=== PATIENT | female | born 1995 | race Caucasian/White ===

== ENCOUNTER 2016-08-02 15:21 | Emergency (ER) | payer MEDICAID ==
[~2016-08-02] VITALS: Ht 177.8 cm; Wt 70.0 kg
[2016-08-02 16:27] LABS: HCG SCREEN NEGATIVE
[2016-08-02] MEDS ORDERED: METHOCARBAMOL 500MG TABLET PO ONE (17:45)
[2016-08-02] MEDS ORDERED: IBUPROFEN 600MG TABLET PO ONE (17:45)
[2016-08-02 18:53] VITALS: BP 118/74
== END 2016-08-02 18:55 | disposition home or self-care (01) ==
LOC: ER 15:22
DX: S16.1XXA Strain of muscle, fascia and tendon at neck level, initial encounter (principal); S39.012A Strain of muscle, fascia and tendon of lower back, initial encounter; S40.021A Contusion of right upper arm, initial encounter; S30.0XXA Contusion of lower back and pelvis, initial encounter; V43.52XA Car driver injured in collision with other type car in traffic accident, initial encounter; Y93.89 Activity, other specified; Y99.8 Other external cause status; Y92.89 Other specified places as the place of occurrence of the external cause
CPT/HCPCS: 72040; 72100; 73090; 84703; 99284